=== PATIENT | female | born 1970 | race Caucasian/White ===

== ENCOUNTER → 2017-09-03 | Outpatient (CLI) | payer BC | END | disposition home or self-care (01) | LOC: LABWHC1 09:45 | PROVIDERS: ATTEND Physician Assistant Medical | DX: L70.8 Other acne (principal); L72.8 Other follicular cysts of the skin and subcutaneous tissue; L02.821 Furuncle of head [any part, except face] | CPT/HCPCS: 36415; 84132 ==

== ENCOUNTER → 2018-02-06 | Outpatient (CLI) | payer BC | END | disposition home or self-care (01) | LOC: LABWHC1 13:54 | PROVIDERS: ATTEND Physician Assistant Medical | DX: L70.8 Other acne (principal) | CPT/HCPCS: 36415; 84132 ==

== ENCOUNTER → 2021-01-31 | Outpatient (CLI) | payer BC | END | disposition home or self-care (01) | LOC: LABWHC1 15:37 | PROVIDERS: ATTEND Internal Medicine | DX: U07.1 COVID-19 (principal) | CPT/HCPCS: U0003; C9803; U0005 ==

== ENCOUNTER → 2021-11-16 | Outpatient (CLI) | payer BC ==
--- NOTE | 2021-11-20 09:13 | MM ---
Reason for exam: screening (asymptomatic). Last mammogram was performed 7 years and 6 months ago. History: Patient has history of endometrial cancer at age 25, has history of other cancer at age 24, and had first child at age 35. Taking hormonal contraceptives for 12 years. Physical Findings: A clinical breast exam by your physician is recommended on an annual basis and results should be correlated with mammographic findings. MG 3D Screening Mammo W/Cad Bilateral CC and MLO view(s) were taken. Prior study comparison: May 31, 2014, bilateral MG screening mammo w CAD. October 27, 2012, bilateral digital screening mammo w/CAD. The breast tissue is extremely dense which could obscure a lesion on mammography. A few bilateral benign oil cyst calcifcations have developed in the interval. No significant changes when compared with prior studies. ASSESSMENT: Benign, BI-RAD 2 RECOMMENDATION: Routine screening mammogram of both breasts in 1 year.
== END | disposition home or self-care (01) ==
LOC: RADMAMWWP 09:20
PROVIDERS: ATTEND Internal Medicine
DX: Z12.31 Encounter for screening mammogram for malignant neoplasm of breast (principal)
CPT/HCPCS: 77063; 77067

== ENCOUNTER → 2021-12-22 | Outpatient (CLI) | payer BC ==
[2021-12-22 12:11] LABS: ALT 14 U/L (4-34); AST 22 U/L (14-36); African American GFR (CKD) >90 (>60 ml/min/1.73 sqM); Albumin 4.5 g/dL (3.5-5.0); Albumin/Globulin Ratio 1.6; Alkaline Phosphatase 72 U/L (38-126); Anion Gap 5 mmol/L; Blood Urea Nitrogen 17 mg/dL (7-17); Calcium 9.2 mg/dL (8.4-10.2); Carbon Dioxide 27 mmol/L (22-30); Chloride 106 mmol/L (98-107); Globulin 2.8 g/dL; Glucose 102 mg/dL (74-99); Non-African American GFR(CKD) >90 (>60 ml/min/1.73 sqM); Potassium 4.2 mmol/L (3.5-5.1); Sodium 138 mmol/L (137-145); Total Bilirubin 0.4 mg/dL (0.2-1.3); Total Protein 7.3 g/dL (6.3-8.2)
[2021-12-22 12:31] LABS: INR 0.9 (<1.2)
[2021-12-22 12:32] LABS: Partial Thromboplastin Time 24.9 sec (22.0-30.0); Prothrombin Time 9.9 sec (9.0-12.0)
[2021-12-22 13:27] LABS: HCT 41.7 % (34.0-46.0); HGB 14.1 gm/dL (11.4-16.0); MCH 31.8 pg (25.0-35.0); MCHC 33.8 g/dL (31.0-37.0); Mean Platelet Volume 7.9; Platelet Count 259 k/uL (150-450); RBC 4.44 m/uL (3.80-5.40); RDW 11.8 % (11.5-15.5); WBC 4.3 k/uL (3.8-10.6)
== END | disposition home or self-care (01) ==
LOC: LABWHC1 10:23
PROVIDERS: ATTEND Orthopaedic Surgery
DX: Z01.818 Encounter for other preprocedural examination (principal); D64.9 Anemia, unspecified; M12.9 Arthropathy, unspecified
CPT/HCPCS: 36415; 80053; 83036; 85027; 85610; 85730; 86850; 86900; 86901; 87070; 93005